=== PATIENT | female | born 2000 | race Hispanic/Latino ===

== ENCOUNTER 2018-09-08 22:41 | Emergency (ER) | payer MEDICAID, OTHER ==
[2018-09-08 23:31] LABS: APPEARANCE,URINE Clear (CLEAR); BILIRUBIN,URINE Negative (NEGATIVE); COLOR,URINE Yellow (YELLOW); GLUCOSE, URINE (UA) Negative (NEGATIVE); KETONES,URINE Trace mg/dL (NEGATIVE); LEUKOCYTE ESTERASE ,URINE Small (NEGATIVE); NITRATE,URINE Positive (NEGATIVE); OCCULT BLOOD,URINE Negative (NEGATIVE); PH,URINE >=9.0 (5.0-8.0); PROTEIN,URINE Trace mg/dL (NEGATIVE)
[2018-09-08 23:38] LABS: HCG,QUAL RESULT NEGATIVE (NEGATIVE)
[2018-09-08 23:57] LABS: BACTERIA,URINE Many /HPF (None Seen); RBC,URINE 0-1 /HPF (0-1)
[2018-09-09] MEDS ORDERED: KETOROLAC TROMETHAMINE 30MG/ML ONE (00:20)
[2018-09-09] MEDS ORDERED: ONDANSETRON HCL 4 MG/2 ML VIAL ONE (00:20)
[2018-09-09] MEDS ORDERED: CEFTRIAXONE SODIUM 1 GM ONE (00:20)
[2018-09-09 00:25] LABS: BASOPHILS % (AUTO) 0.1 % (0.0-5.0); EOSINOPHILS % (AUTO) 0.4 % (0.0-8.0); HEMATOCRIT 40.9 % (36-48); LYMPHOCYTES % (AUTO) 7.4 % (21.0-51.0); MEAN CORPUSCULAR HEMOGLOBIN 29.8 pg (27.0-33.0); MEAN CORPUSCULAR HGB CONC 33.6 g/dL (32.0-36.0); MEAN CORPUSCULAR VOLUME 88.6 fL (80-100); MONOCYTES % (AUTO) 4.4 % (3.0-13.0); NEUTROPHILS % (AUTO) 87.7 % (40.0-77.0); PLATELET COUNT (AUTO) 294 K/uL (130-400); RED BLOOD CELL COUNT(AUTO) 4.62 MIL/uL (4.00-5.50); RED CELL DISTRIBUTION WIDTH 13.1 % (11.0-15.5)
[2018-09-09 00:35] LABS: CREATININE 0.9 mg/dL (0.5-1.5); POTASSIUM 3.7 mmol/L (3.5-5.1)
[2018-09-09 00:40] LABS: ALBUMIN 3.5 g/dL (3.5-5.0); BILIRUBIN,TOTAL 0.8 mg/dL (0.2-1.0); TOTAL PROTEIN, SERUM 6.9 g/dL (6.0-8.3)
== END 2018-09-09 02:03 | disposition home or self-care (01) ==
LOC: EDH 22:41
DX: N39.0 Urinary tract infection, site not specified (principal); R10.32 Left lower quadrant pain; R11.2 Nausea with vomiting, unspecified
CPT/HCPCS: 36415; 74176; 80053; 81001; 81025; 85025; 96361; 96374; 96375; 99285; J0696; J1885; J2405

== ENCOUNTER 2019-11-30 13:26 | Emergency (ER) | payer SELFPAY | END 2019-11-30 13:56 | disposition left against medical advice (07) | LOC: EDH 13:26 | DX: Z53.21 Procedure and treatment not carried out due to patient leaving prior to being seen by health care provider (principal) ==

== ENCOUNTER 2021-05-20 19:55 | Emergency (ER) | payer MEDICAID, OTHER ==
[~2021-05-20] VITALS: Ht 162.6 cm; Wt 83.9 kg
[2021-05-20] MEDS ORDERED: 0.9%NACL 1000ML 1,000 ML IV SCH (20:30)
[2021-05-20] MEDS ORDERED: ONDANSETRON 4MG INJ IVP ONE (20:30)
[2021-05-20 20:32] LABS: BASOPHILS % (AUTO) 0.3 % (0.0-5.0); EOSINOPHILS % (AUTO) 0.5 % (0.0-8.0); HEMATOCRIT 33.9 % (36-48); LYMPHOCYTES % (AUTO) 5.4 % (21.0-51.0); MEAN CORPUSCULAR HGB CONC 33.9 g/dL (32.0-36.0); MEAN CORPUSCULAR VOLUME 88.5 fL (79-99); MONOCYTES % (AUTO) 10.7 % (3.0-13.0); NEUTROPHILS % (AUTO) 82.3 % (40.0-77.0); PLATELET COUNT (AUTO) 255 K/uL (130-400); RED BLOOD CELL COUNT(AUTO) 3.83 MIL/uL (4.00-5.50); RED CELL DISTRIBUTION WIDTH 12.3 % (11.0-15.5); WHITE BLOOD COUNT (AUTO) 10.1 K/uL (4.8-10.8)
[2021-05-20] MEDS ORDERED: ONDANSETRON 4MG INJ ONE (20:35)
[2021-05-20] MEDS ORDERED: 0.9%NACL 1000ML 1,000 ML IV ONE (20:36)
[2021-05-20 20:53] LABS: APPEARANCE,URINE Cloudy (CLEAR); BILIRUBIN,URINE Negative (NEGATIVE); COLOR,URINE Yellow (YELLOW); GLUCOSE, URINE (UA) Negative (NEGATIVE); KETONES,URINE Trace mg/dL (NEGATIVE); LEUKOCYTE ESTERASE ,URINE Large (NEGATIVE); NITRATE,URINE Negative (NEGATIVE); OCCULT BLOOD,URINE Negative (NEGATIVE); PH,URINE 6.5 (5.0-8.0); PROTEIN,URINE Negative (NEGATIVE)
[2021-05-20 20:59] LABS: BACTERIA,URINE Moderate /HPF (None Seen); RBC,URINE 0-1 /HPF (0-1); TRICHOMONAS,URINE Few /LPF (None Seen); WBC,URINE >100 /HPF (0-1)
[2021-05-20 21:00] LABS: MUCUS,URINE Few LPF (None Seen); SQUAMOUS EPITHELIAL CELL,UR Few /HPF (0-2)
[2021-05-20] MEDS ORDERED: ACETAMINOPHEN 500 MG TABLET PO ONE (21:00)
[2021-05-20 21:05] LABS: CREATININE 0.7 mg/dL (0.5-1.5); POTASSIUM 3.5 mmol/L (3.5-5.1)
[2021-05-20 21:10] LABS: ALBUMIN 2.8 g/dL (3.5-5.0); BILIRUBIN,TOTAL 0.4 mg/dL (0.2-1.0); TOTAL PROTEIN, SERUM 7.4 g/dL (6.0-8.3)
[2021-05-20 22:00] VITALS: BP 122/76
[2021-05-20] MEDS ORDERED: CEPH PO (22:12)
[2021-05-20] MEDS ORDERED: CEFTRIAXONE 1G VIAL ONE (22:17)
[2021-05-20] MEDS ORDERED: CEFTRIAXONE 1G VIAL IVP ONE (22:30)
== END 2021-05-20 22:40 | disposition home or self-care (01) ==
LOC: EDH 19:55
DX: O98.513 Other viral diseases complicating pregnancy, third trimester (principal); U07.1 COVID-19; O23.13 Infections of bladder in pregnancy, third trimester; Z3A.30 30 weeks gestation of pregnancy
CPT/HCPCS: 36415; 80053; 81001; 85025; 87088; 87635; 87804 ×2; 87880; 96374; 96375; 99284; C9803; J0696; J2405; J7030

== ENCOUNTER 2021-05-30 18:00 | Observation (INO) | payer MEDICAID ==
[~2021-05-30] VITALS: Ht 162.6 cm; Wt 82.6 kg
[~2021-05-30 18:00] MED LIST: CEPH PO
[2021-05-30 18:02] VITALS: BP 119/69
[2021-05-30 20:25] LABS: APPEARANCE,URINE Turbid (CLEAR); BILIRUBIN,URINE Negative (NEGATIVE); COLOR,URINE Yellow (YELLOW); GLUCOSE, URINE (UA) TRACE mg/dL (NEGATIVE); KETONES,URINE Trace mg/dL (NEGATIVE); LEUKOCYTE ESTERASE ,URINE Moderate (NEGATIVE); NITRATE,URINE Negative (NEGATIVE); OCCULT BLOOD,URINE Negative (NEGATIVE); PH,URINE 6.5 (5.0-8.0); PROTEIN,URINE Trace mg/dL (NEGATIVE)
[2021-05-30 20:33] LABS: AMPHET/METH SCREEN,URINE NEGATIVE (NEGATIVE); BARBITURATE SCREEN, URINE NEGATIVE (NEGATIVE); BENZODIAZEPINES SCREEN,URINE NEGATIVE (NEGATIVE); CANNABINOID SCREEN,URINE NEGATIVE (NEGATIVE); COCAINE SCREEN,URINE NEGATIVE (NEGATIVE); OPIATE SCREEN,URINE NEGATIVE (NEGATIVE); PHENCYCLIDINE SCREEN,URINE NEGATIVE (NEGATIVE)
[2021-05-30 20:37] LABS: AMORPHOUS SEDIMENT,UR Moderate /LPF (None Seen)
[2021-05-30 20:38] LABS: BACTERIA,URINE Few /HPF (None Seen); RBC,URINE None Seen /HPF (0-1); SQUAMOUS EPITHELIAL CELL,UR 0-2 /HPF (0-2)
== END 2021-05-30 21:30 | disposition home or self-care (01) ==
LOC: EDH 18:00 → LDH 18:28
PROVIDERS: ADMIT Obstetrics & Gynecology; ATTEND Obstetrics & Gynecology
DX: O42.913 Preterm premature rupture of membranes, unspecified as to length of time between rupture and onset of labor, third trimester (principal); Z3A.31 31 weeks gestation of pregnancy; Z79.899 Other long term (current) drug therapy; Z86.16 Personal history of COVID-19
CPT/HCPCS: 59025; 76819; 80305; 81001; 87088; G0378; G0379

== ENCOUNTER 2022-03-27 12:06 | Emergency (ER) | payer MEDICAID ==
[~2022-03-27] VITALS: Ht 162.6 cm; Wt 86.2 kg
[2022-03-27 12:10] VITALS: BP 121/64
[2022-03-27] MEDS ORDERED: 0.9%NACL 1000ML 1,000 ML IV ONE (12:30)
[2022-03-27 13:37] LABS: BASOPHILS % (AUTO) 0.3 % (0.0-5.0); EOSINOPHILS % (AUTO) 1.6 % (0.0-8.0); HEMATOCRIT 40.9 % (36-48); LYMPHOCYTES % (AUTO) 13.3 % (21.0-51.0); MEAN CORPUSCULAR HGB CONC 32.5 g/dL (32.0-36.0); MONOCYTES % (AUTO) 5.5 % (3.0-13.0); PLATELET COUNT (AUTO) 324 K/uL (130-400); RED BLOOD CELL COUNT(AUTO) 5.11 MIL/uL (4.00-5.50); RED CELL DISTRIBUTION WIDTH 16.4 % (11.0-15.5); WHITE BLOOD COUNT (AUTO) 11.7 K/uL (4.8-10.8)
[2022-03-27 13:44] LABS: HCG,QUALITATIVE URINE NEGATIVE (NEGATIVE)
[2022-03-27 13:46] LABS: CREATININE 0.8 mg/dL (0.5-1.5); POTASSIUM 3.7 mmol/L (3.5-5.1)
[2022-03-27 13:51] LABS: TOTAL PROTEIN, SERUM 8.3 g/dL (6.0-8.3)
[2022-03-27 13:56] LABS: APPEARANCE,URINE CLOUDY (CLEAR); BILIRUBIN,URINE NEGATIVE (NEGATIVE); COLOR,URINE YELLOW (YELLOW); GLUCOSE, URINE (UA) NEGATIVE (NEGATIVE); KETONES,URINE NEGATIVE (NEGATIVE); LEUKOCYTE ESTERASE ,URINE 75 Leu/uL (NEGATIVE); NITRATE,URINE NEGATIVE (NEGATIVE); OCCULT BLOOD,URINE LARGE (NEGATIVE); PH,URINE 6.5 (5.0-8.0); PROTEIN,URINE 20 mg/dL (NEGATIVE); UROBILINOGEN,URINE 0.2 mg/dL (0.2-1.0)
[2022-03-27 14:16] LABS: BACTERIA,URINE FEW /HPF (None Seen); MUCUS,URINE RARE LPF (None Seen); OTHER CASTS, URINE 1 /LPF (None Seen); RBC,URINE 26-50 /HPF (0-1); SQUAMOUS EPITHELIAL CELL,UR MOD /HPF (0-2)
[2022-03-27] MEDS ORDERED: OSEL75 PO (14:20)
[2022-03-27] MEDS ORDERED: BACI1CAP6 PO (14:20)
[2022-03-27] MEDS ORDERED: CEPH500B PO (14:20)
[2022-03-27] MEDS ORDERED: IBUP-2070 PO (14:20)
[2022-03-27] MEDS ORDERED: ONDA4TAB10 PO (14:20)
[2022-03-27] MEDS ORDERED: ONDANSETRON ODT 4MG TAB SL ONE (14:30)
[2022-03-27] MEDS ORDERED: FAMOTIDINE 20MG TAB PO ONE (14:30)
== END 2022-03-27 14:45 | disposition home or self-care (01) ==
LOC: EDH 12:06
DX: J11.1 Influenza due to unidentified influenza virus with other respiratory manifestations (principal); N39.0 Urinary tract infection, site not specified; Z79.899 Other long term (current) drug therapy; Z98.890 Other specified postprocedural states
CPT/HCPCS: 36415; 80053; 81001; 81025; 83690; 85025; 87077; 87088; 87186

== ENCOUNTER 2022-08-19 09:37 | Emergency (ER) | payer MEDICAID ==
[~2022-08-19] VITALS: Ht 167.6 cm; Wt 81.6 kg
[~2022-08-19 09:37] MED LIST changes: +BACI1CAP6 PO; +CEPH500B PO; +IBUP-2070 PO; +ONDA4TAB10 PO; +OSEL75 PO
[2022-08-19] MEDS ORDERED: AMOXICILLIN 500 MG CAPSULE PO ONE (10:00)
[2022-08-19] MEDS ORDERED: CIPROFLOXACIN HCL 0.2%/HYDROCORT 1% 10 ML OTIC SUSP OTIC SCH (10:00)
[2022-08-19] MEDS ORDERED: KETOROLAC 60 MG VIAL (30MG/ML) IM ONE (10:00)
[2022-08-19] MEDS ORDERED: AMOX500C2 PO (10:03)
[2022-08-19] MEDS ORDERED: CIPR7.5D AS (10:03)
[2022-08-19] MEDS ORDERED: IBUP-2070 PO (10:03)
[2022-08-19 10:27] VITALS: BP 126/73
== END 2022-08-19 10:32 | disposition home or self-care (01) ==
LOC: EDH 09:37
DX: H60.392 Other infective otitis externa, left ear (principal); H66.92 Otitis media, unspecified, left ear; Z79.899 Other long term (current) drug therapy; Z98.890 Other specified postprocedural states
CPT/HCPCS: 99283; 96372; J1885

== ENCOUNTER 2023-01-18 22:10 | Emergency (ER) | payer MEDICAID ==
[~2023-01-18] VITALS: Ht 162.6 cm; Wt 87.5 kg
[~2023-01-18 22:10] MED LIST changes: +AMOX500C2 PO; +CIPR7.5D AS
[2023-01-18 22:12] VITALS: BP 120/72; PULSE 102; RESP 16; O2SAT 98
[2023-01-19 00:26] LABS: RAPID GROUP A STREP negative (NEGATIVE)
[2023-01-19 00:32] LABS: SARS-CoV-2, RNA, NAAT NEGATIVE SARS CoV-2 (NEGATIVE)
[2023-01-19 00:36] LABS: INFLUENZA TYPE A Negative For Type A (NEGATIVE); INFLUENZA TYPE B Negative For Type B (NEGATIVE)
[2023-01-19] MEDS ORDERED: AMOX500C2 PO (00:53)
[2023-01-19] MEDS ORDERED: ACET-2743 PO (00:53)
== END 2023-01-19 01:18 | disposition home or self-care (01) ==
LOC: EDH 22:10
DX: J03.90 Acute tonsillitis, unspecified (principal); Z20.822 Contact with and (suspected) exposure to COVID-19
CPT/HCPCS: 99283; 87635; 87880; 87804 ×2; C9803

== ENCOUNTER 2024-02-06 13:35 | Emergency (ER) | payer BC, MEDICAID ==
[~2024-02-06] VITALS: Ht 162.6 cm; Wt 86.2 kg
[~2024-02-06 13:35] MED LIST changes: +ACET-2743 PO; +ONDA-243 PO; -ONDA4TAB10 PO
[2024-02-06] MEDS: morPHINE 4 MG SYG IVP ONE (14:16)
[2024-02-06] MEDS: Solu-medROL 125MG VIAL IVP ONE (14:16)
[2024-02-06] MEDS: CYCLOBENZAPRINE HCL 10 MG TABLET PO ONE (14:17)
[2024-02-06] MEDS: ondanSETRON 4MG INJ IVP ONE (14:17)
[2024-02-06] MEDS: ketOROlac 30MG VIAL (30MG/ML) IVP ONE (14:17)
[2024-02-06] MEDS ORDERED: METH4TAB3 PO (15:12)
[2024-02-06] MEDS ORDERED: CYCL-309 PO (15:12)
[2024-02-06] MEDS ORDERED: IBUP-2077 PO (15:12)
[2024-02-06 15:19] VITALS: BP 103/49; PULSE 63; RESP 18; TEMP 98.4; O2SAT 99
== END 2024-02-06 16:15 | disposition home or self-care (01) ==
LOC: EDH 13:35
DX: M54.16 Radiculopathy, lumbar region (principal); G89.29 Other chronic pain; M54.50 Low back pain, unspecified; Z79.899 Other long term (current) drug therapy
CPT/HCPCS: 99284; 96374; 96375; 72100; J2919; J2405; J2270; J1885

== ENCOUNTER 2025-05-15 13:48 | Emergency (ER) | payer BC ==
[~2025-05-15] VITALS: Ht 162.6 cm; Wt 79.4 kg
[~2025-05-15 13:48] MED LIST changes: +CYCL-309 PO; +IBUP-1492 PO; -IBUP-2070 PO; +IBUP-2077 PO; +METH4TAB3 PO
--- NOTE | 2025-05-15 13:55 | ERN ---
ED Note History of Present Illness Stated Complaint: LLQ ABDOMINAL PAIN. NAUSEA Chief Complaint: Abdominal Pain Time Seen by MD: 13:53 Time Seen by Midlevel: 13:58 Dictation: Ms. Grossman is a 24-year-old female with no reported chronic health issues who presented to the emergency department this afternoon for evaluation of abdominal pain. She reports two days of left lower quadrant/pelvic abdominal pain accompanied by nausea. She states that she has been having irregular menstrual bleeding (on Nexplanon). She states she stopped bleeding few days ago but menses was very was painful with heavy bleeding and clots. She states she also was told by her partner that he tested positive for chlamydia and should be tested. She denies fever, chills, shortness of breath, cough, chest pain, palpitations, edema, vomiting, hematemesis, constipation, diarrhea, melena, hematochezia, dysuria, flank pain, hematuria, vaginal discharge, headache, dizziness, or focal weakness/paresthesia Allergies: Coded Allergies: No Known Drug Allergies (Unverified Allergy, Unknown, 05/20/21) Home Meds Active Scripts Metronidazole (Metronidazole) 500 Mg Tablet, 1 TAB PO BID for 14 Days, #28 TAB 0 Refills Prov:[employer] 05/15/25 Doxycycline Hyclate (Doxycycline Hyclate) 100 Mg Capsule, 1 CAP PO BID for 14 Days, #28 CAP 0 Refills Prov:[employer] 05/15/25 Cyclobenzaprine HCl (Cyclobenzaprine HCl) 10 Mg Tablet, 10 MG PO TIDP PRN for MUSCLE PAIN/SPASM, #30 TAB Prov:[employer] 02/06/24 Methylprednisolone (Medrol) 4 Mg Tab.ds.pk, 4 MG PO AD, #1 UNIT Prov:[employer] 02/06/24 Ibuprofen (Ibuprofen 800 mg Tab) 800 Mg Tab, 800 MG PO Q6H PRN for PAIN, #30 TAB Prov:[employer] 02/06/24 Acetaminophen (Tylenol Extra Strength) 500 Mg Tablet, 1000 MG PO TID PRN for FEVER, #50 TAB Prov:JEMAL SCHULZ MD 01/19/23 Amoxicillin (Amoxicillin) 500 Mg Capsule, 500 MG PO TID for 10 Days, #30 CAP 0 Refills Prov:JEMAL SCHULZ MD 01/19/23 Ciprofloxacin HCl/Dexameth (Ciprodex Otic Suspension) 7.5 Ml Drops.susp, 4 DROP BID for 7 Days, #1 BOTTLE 0 Refills Prov:JULIAN LOPES MD 08/19/22 Ibuprofen (Ibuprofen) 600 Mg Tablet, 600 MG PO Q6H PRN for PAIN, #30 TAB 0 Refills Prov:JULIAN LOPES MD 08/19/22 Amoxicillin (Amoxicillin) 500 Mg Capsule, 500 MG PO TID for 10 Days, #30 CAP 0 Refills Prov:JULIAN LOPES MD 08/19/22 Cephalexin Monohydrate (Keflex) 500 Mg Cap, 500 MG PO QID for 7 Days, #28 CAP Prov:[facility] 03/27/22 Ibuprofen (Ibuprofen) 600 Mg Tablet, 600 MG PO Q6H PRN for PAIN, #15 TAB Prov:[facility] 03/27/22 Bacillus Coagulans (Probiotic) 1 Each Capsule.dr, 1 EACH PO DAILY, #30 CAP Prov:[facility] 03/27/22 Oseltamivir Phosphate (Tamiflu) 75 Mg Cap, 75 MG PO BID, #10 CAP Prov:[facility] 03/27/22 Ondansetron (Ondansetron Odt) 4 Mg Tab.rapdis, 4 MG PO TID, #10 TAB Prov:[facility] 03/27/22 Cephalexin (Cephalexin) 250 Mg/5 Ml Oral.susp, 500 MG PO TID for 7 Days, #210 ML 0 Refills Prov:JULIAN LOPES MD 05/20/21 Past Medical History Past Medical History: Other Additional Past Medical Hx: CHRONIC BACK PAIN Surgical History: Other Surgical History Other: LIPO SUCTION PSYCH History: no pertinent psych hx Family History: Negative Social History: Negative, Lives with family : 1 Para: 0 Aborts: 0 RN Note Reviewed/Agreed w/PFSH: Yes Review of System Dictation REVIEW OF SYSTEMS: CONSTITUTIONAL: Patient denies fevers, chills, sweats and weight changes. EYES: Patient denies any visual symptoms. EARS, NOSE, AND THROAT: No difficulties with hearing. No symptoms of rhinitis or sore throat. CARDIOVASCULAR: Patient denies chest pains, palpitations, orthopnea and paroxysmal nocturnal dyspnea. RESPIRATORY: No dyspnea on exertion, no wheezing or cough. GI: No vomiting, diarrhea, constipation, hematochezia or melena. Reports left lower quadrant/pelvic pain. : No urinary hesitancy or dribbling. No nocturia or urinary frequency. No abnormal urethral discharge. Denies flank pain or hematuria. Denies vaginal bleeding or discharge. MUSCULOSKELETAL: No myalgias or arthralgias. NEUROLOGIC: No chronic headaches, no seizures. Patient denies numbness, tingling or weakness. PSYCHIATRIC: Patient denies problems with mood disturbance. No problems with anxiety. ENDOCRINE: No excessive urination or excessive thirst. DERMATOLOGIC: Patient denies any rashes or skin changes. Initial Vital Sign VS Vital Signs Date Time Temp Pulse Resp B/P (MAP) Pulse Ox O2 Delivery O2 Flow Rate FiO2 05/15/25 13:49 98.1 66 14 127/76 100 Room Air 0 05/15/25 16:22 21 Physical Exam Dictation Vital signs: Reviewed. Afebrile Constitutional: No acute distress. Non-toxic appearing. Head/Face: Normocephalic, atraumatic. Eyes: Periorbital areas with no swelling, redness, or edema. Lids and lashes are normal. Conjunctival injection is absent. Sclera anicteric. Pupils equal, round, reactive to light. ENT: Pinnas intact and no signs of trauma or erythema. Ear canals clear and no discharge. TMs no erythema. No nasal discharge or bleeding noted. Oropharynx with no exudate, redness, swelling, masses, exudates, or evidence of obstruction. Uvula midline. Mucous membranes moist. Neck: Trachea midline, no masses palpated, and no cervical lymphadenopathy. No swelling. Supple, full range of motion. Chest/Axilla: No tenderness, no crepitus, no paradoxical movement, no retrac tions. Cardiovascular: Regular rate, regular rhythm, no murmur, no gallops. Symmetric pulses. No peripheral edema. Normotensive; BP 127/76 Respiratory: Respirations even and unlabored. Lung sounds clear; no wheezes, rales or rhonchi. Room air SpO2 100% Gastrointestinal: Inspection is normal. No distention is appreciated. Bowel sounds are normal. No mass or organomegaly . There is no tenderness. No rebound. No rigidity. No voluntary or involuntary guarding. No Joyce's sign. Neurological: Normal speech, gross motor function intact, gross sensory function intact. No focal weakness/Paresthesia. Musculoskeletal/Extremities: All extremities have full range of motion, no pain or tenderness on palpation. Symmetric pulses. Integumentary: Intact. Skin is normal color, warm and dry. Cap refill less than 3 seconds. Results (Laboratory/Radiology) Laboratory/Radiology Laboratory Tests Test 05/15/25 14:04 05/15/25 14:15 Urine Color LIGHT-YELLOW (YELLOW) Urine Appearance CLEAR (CLEAR) Urine pH 6.5 (5.0-8.0) Urine Specific [place] 1.012 (1.001-1.031) Urine Protein NEGATIVE mg/dL (NEGATIVE) Urine Glucose (UA) NEGATIVE mg/dL (NEGATIVE) Urine Ketones NEGATIVE mg/dL (NEGATIVE) Urine Occult Blood LARGE (NEGATIVE) H Urine Nitrate NEGATIVE (NEGATIVE) Urine Bilirubin NEGATIVE mg/dL (NEGATIVE) Urine Urobilinogen 0.2 mg/dL (0.2-1.0) Urine Leukocyte Esterase NEGATIVE Joe/uL Urine RBC 0-1 /HPF (0-1) Urine WBC 2-5 /HPF (0-1) H Urine Squamous Epithelial Cells FEW /HPF (0-2) Urine Bacteria MANY /HPF (None Seen) Urine HCG, Qualitative NEGATIVE (NEGATIVE) White Blood Count 7.4 K/uL (4.8-10.8) Red Blood Count 4.43 MIL/uL (4.00-5.50) Hemoglobin 13.5 g/dL (12.0-16.0) Hematocrit 40.0 % (36-48) Mean Corpuscular Volume 90.3 fL (79-99) Mean Corpuscular Hemoglobin 30.5 pg (27.0-33.0) Mean Corpuscular Hemoglobin Concent 33.8 g/dL (32.0-36.0) Red Cell Distribution Width 12.2 % (11.0-15.5) Platelet Count 328 K/uL (130-400) Mean Platelet Volume 10.1 fL (7.5-10.5) Immature Granulocyte % (Auto) 0.3 % (0-1) Neutrophils (%) (Auto) 65.7 % (40.0-77.0) Lymphocytes (%) (Auto) 26.0 % (21.0-51.0) Monocytes (%) (Auto) 6.2 % (3.0-13.0) Eosinophils (%) (Auto) 1.3 % (0.0-8.0) Basophils (%) (Auto) 0.5 % (0.0-5.0) Neutrophils # (Auto) 4.9 K/uL (1.8-7.7) Lymphocytes # (Auto) 1.9 K/uL (1.0-4.8) Monocytes # (Auto) 0.5 K/uL (0.1-1.0) Eosinophils # (Auto) 0.10 K/uL (0.00-0.70) Basophils # (Auto) 0.04 K/uL (0.00-0.20) Absolute Immature Granulocyte (auto 0.02 K/uL (0-1) Nucleated Red Blood Cells 0.0 % (0.0-0.19) Sodium Level 137 mmol/L (136-145) Potassium Level 3.8 mmol/L (3.5-5.1) Chloride Level 104 mmol/L (101-111) Carbon Dioxide Level 27 mmol/L (21-32) Blood Urea Nitrogen 10 mg/dL (7-18) Creatinine 0.8 mg/dL (0.5-1.0) Glomerular Filtration Rate Calc 104 mL/min (>90) Random Glucose 89 mg/dL (70-105) Total Calcium 8.4 mg/dL (8.5-10.1) L Labs Reviewed?: Yes ED Course ED Course Orders Procedure Category Date Status Time Chlamydia & Gc Pcr JANNIE 05/15/25 In Process 13:59 ,Urine Test LAB 05/15/25 Complete 13:59 Urinalysis Profile LAB 05/15/25 Complete 13:59 Cbc With Differential LAB 05/15/25 Complete 14:02 Basic Metabolic Panel LAB 05/15/25 Complete 14:02 Ceftriaxone 500mg PHA 05/15/25 Complete Vial (Rocephin 500mg I 14:30 Culture Urine JANNIE 05/15/25 In Process 14:43 Current Medications Medications (Trade) Dose Ordered Sig/Scott Route PRN Reason Start Time Stop Time Status Last Admin Dose Admin Ceftriaxone Sodium (Rocephin 500mg Inj) 500 mg Q24H IM 05/15/25 14:30 05/15/25 16:25 DC 05/15/25 16:13 Vital Signs Date Time Temp Pulse Resp B/P (MAP) Pulse Ox O2 Delivery O2 Flow Rate FiO2 05/15/25 16:22 98.1 65 15 125/76 100 Room Air* 0 21 05/15/25 13:49 98.1 66 14 127/76 100 Room Air 0 Uneventful ED course. Signs remained stable; afebrile. Patient with known exposure to sexually transmitted infection (chlamydia). Initial evaluation included laboratory studies and urinalysis. test was negative. H and H are stable with no evidence of anemia. Electrolytes and renal function within normal limits. Urinalysis notable for large blood 2-5 WBCs and many bacteria, felt possibly contaminated in the setting of vaginal bleeding. Given known exposure to chlamydia, clinical presentation patient was treated empirically for sexually transmitted infection and possible pelvic inflammatory disease. Patient received ceftriaxone 500 mg IM in the emergency department and was discharged with prescriptions for doxycycline and metronidazole. Patient remained hemodynamically stable throughout ED course without worsening pain or bleeding. Given reassuring laboratory results and treatment initiated, patient was deemed stable for discharge. Was counseled on medication adherence abstain from sexual activity until completion of treatment, and location. He will be contacted with final STD results if positive. Strict return precautions and outpatient follow up were discussed Medical Decision Making MDM MDM: Differential diagnosis: STI/chlamydia, UTI, anemia, electrolyte derangement Rationale: Tests considered and ordered secondary to shared decision making include: Lab Previous outside records reviewed: Old ER visits. Risk of complication and/or morbidity or mortality of patient management: None Medications-Per medication reconciliation Need for hospitalization: Patient does not meet criteria for hospitalization. Need for emergency major/minor surgery: No There are no social concerns with this patient. Prescription drug management: Doxycycline, metronidazole Prescriptions will include symptomatic care Patient's prior external medical records from other ER visits were reviewed by me as indicated. Prior testing and results from previous visits were reviewed. Prior tests were taken into account with medical decision making and resource utilization, independent historian/historians were used to obtain complete medical history. I independently interpreted the test that were performed, results were reviewed by me and considered findings on radiology if ordered. Medical management and examination interpretation discussions were had by me with other qualified healthcare professionals as indicated for the patient's care. DX & DISP Disposition: Discharge Departure Impression: Primary Impression: Suspected STI-chlamydia Additional Impressions: Abdominal pain, Possible PID Condition: Stable Scripts Metronidazole (Metronidazole) 500 Mg Tablet 1 TAB PO BID for 14 Days, #28 TAB 0 Refills Prov: [employer] 05/15/25 Doxycycline Hyclate (Doxycycline Hyclate) 100 Mg Capsule 1 CAP PO BID for 14 Days, #28 CAP 0 Refills Prov: [employer] 05/15/25 Additional Instructions: Treated today for possible sexually transmitted infection and pelvic infection as well as abnormal vaginal bleeding. has been ruled out and your blood work was reassuring. You will take doxycycline 100 mg twice daily for 14 days as well as Flagyl 500 mg twice daily for 14 days. You were given Rocephin 500 mg IM in the emergency department. Take all your antibiotics as prescribed and complete the full course. Do not drink alcohol while taking Flagyl. Take doxycycline with water and remain upright for at least 30 minutes. Use sun protection while on doxycycline food no sexual activity until: You and your partner have completed treatment. Your symptoms have resolved. Your partner must be treated. He will be contacted if your STD test results are positive or if additional treatment is needed. Some vaginal bleeding can occur with infection or hormonal contraception. Use pads instead of tampons until bleeding resolves. You may use acetaminophen or ibuprofen as needed for discomfort. Follow up with your primary care provider or registered vascular technologist (rvt) within 1-2 weeks. Return sooner if symptoms do not improve within 48-72 hours. Return to the emergency department immediately if you develop any of the following: Fever or chills, worsening pelvic/abdominal pain. Persistent vomiting/inability to tolerate medications. Heavy vaginal bleeding (soaking greater than one pad per hour). N ew dizziness/fainting/weakness. Pain with urination, flank pain, or worsening urinary symptoms. You were treated empirically today because delayed treatment can increase the risk of complications. Close follow up in completing your medications are very important Referrals: BENITO COYNE MD (PCP) Time of Disposition: 15:27 I performed a substantive portion of the visit. I have reviewed and personally made and approve the management plan that is documented in the notes by myself with YULIET/resident. I acknowledged full responsibility for the patient's management plan. LETY LUX RONAN May 15, 2025 13:55 ISAIAS CAMPA DO May 15, 2025 18:02
[2025-05-15 14:21] LABS: IMMATURE GRANULOCYTE ABSOLUTE 0.02 K/uL (0-1); NUCLEATED RED BLOOD CELLS 0.0 % (0.0-0.19); PLATELET COUNT (AUTO) 328 K/uL (130-400); RED BLOOD CELL COUNT(AUTO) 4.43 MIL/uL (4.00-5.50); RED CELL DISTRIBUTION WIDTH 12.2 % (11.0-15.5); WHITE BLOOD COUNT (AUTO) 7.4 K/uL (4.8-10.8)
[2025-05-15 14:29] LABS: APPEARANCE,URINE CLEAR (CLEAR); GLUCOSE, URINE (UA) NEGATIVE (NEGATIVE); LEUKOCYTE ESTERASE ,URINE NEGATIVE Leu/uL (NEGATIVE); NITRATE,URINE NEGATIVE (NEGATIVE); OCCULT BLOOD,URINE LARGE (NEGATIVE)
[2025-05-15 14:32] LABS: HCG,QUALITATIVE URINE NEGATIVE (NEGATIVE)
[2025-05-15 14:35] LABS: CREATININE 0.8 mg/dL (0.5-1.0); GLOMERULAR FILTR. RATE CALC 104.0 mL/min (>90); GLUCOSE,RANDOM 89.0 mg/dL (70-105); SODIUM SERUM 137.0 mmol/L (136-145); UREA NITROGEN, BLOOD 10.0 mg/dL (7-18)
[2025-05-15 14:36] LABS: ADD UA MICROSCOPIC YES
[2025-05-15 14:42] LABS: SQUAMOUS EPITHELIAL CELL,UR FEW /HPF (0-2)
[2025-05-15] MEDS ORDERED: METR-172 PO (15:29)
[2025-05-15] MEDS ORDERED: DOXY100C5 PO (15:29)
[2025-05-15 16:22] VITALS: BP 125/76; PULSE 65; RESP 15; TEMP 98; O2SAT 100
--- NOTE | 2025-05-16 13:55 | NUR ---
REGARDING CHLAMYDIA GC PCR RESULTS: REVIEWED WITH DR MENDOZA. STATES PATIENT WAS DISCHARGED WITH APPROPRIATE MEDICATION TO TREAT. WILL CONTACT PATIENT TO REVIEW RESULTS.
--- NOTE | 2025-05-16 14:04 | NUR ---
ATTEMPTED TO CALL THE PATIENT TO NOTIFY THEM OF CHLAMYDIA PCR RESULTS. IN 3 CALL ATTEMPTS, THE PATIENT DID NOT ANSWER. ER MADE AWARE.
== END 2025-05-15 16:25 | disposition home or self-care (01) ==
LOC: EDH 13:48
DX: R10.32 Left lower quadrant pain (principal); R11.0 Nausea; R10.22 Pelvic and perineal pain left side; G89.29 Other chronic pain
CPT/HCPCS: 99284; 80048; 85025; 87086; 87186; 87491; 87591; 81001; 81025; 36415; 96372; J0696